=== PATIENT | female | born 1970 | race Caucasian/White ===

== ENCOUNTER 2019-08-29 09:34 | Emergency (ER) | payer BC ==
[2019-08-29 09:52] VITALS: RESP 18
--- NOTE | 2019-08-29 10:07 | ED ---
General Adult HPI - General Chief complaint: Psychiatric Symptoms Stated complaint: EPS eval Time Seen by Provider: 08/29/19 09:39 Source: patient Mode of arrival: EMS Limitations: no limitations - History of Present Illness Initial comments: Dictation was produced using [employer] dictation software. please excuse any grammatical, word or spelling errors. Chief Complaint: 49-year-old female brought in for psychiatric evaluation. History of Present Illness: 1-year-old female she was brought in by significant other for psychiatric evaluation. Patient is recently diagnosed bipolar disease. Patient has been behaving strangely according to significant other. She's been sending round attacks. She left the house and drove straight her psychiatrist's office it is recommended to her to come to the emergency department for EPS evaluation. Patient is to medical complaints at this time. She states that she does not feel like herself. The ROS documented in this emergency department record has been reviewed and confirmed by me. Those systems with pertinent positive or negative responses have been documented in the HPI. All other systems are other negative and/or noncontributory. PHYSICAL EXAM: General Impression: Alert and oriented x3, not in acute distress HEENT: Normocephalic atraumatic, extra-ocular movements intact, pupils equal and reactive to light bilaterally, mucous membranes moist. Cardiovascular: Heart regular rate and rhythm, S1&S2 audible, no murmurs, rubs or gallops Chest: Lungs clear to auscultation bilaterally, no rhonchi, no wheeze, no rales Abdomen: Bowel sounds present, abdomen soft, non-tender, non-distended, no organomegaly Musculoskeletal: Pulses present and equal in all extremities, no peripheral edema Motor: no focal deficits noted Neurological: CN II-XII grossly intact, no focal motor or sensory deficits noted Skin: Intact with no visualized rashes Psych: Normal affect and mood ED course: 49 y old female with recently diagnosed bipolar disease presents with request for psychiatric evaluation. On arrival are within except limits. Patient is no medical complaints. Physical examination is benign. Patient medically cleared for EPS evaluation. Patient was adamant about receiving his CT because she reports that her aunt had brain tumor. Discussed patient that there is no definitive reason to obtain CT. CT eventually was ordered showing findings of sinusitis. Patient is given Augmentin. University levels were requested by EPS nurse. Found to be 0.7 which is below therapeutic level. Discussed patient that she may need to have her medications adjusted. Patient given prescription for Augmentin. Gastric discharge planning was arranged by EPS. Patient clear for discharge. Recommend is sent to pharmacy for fever. She is understandable and agreeable with disposition. Return precautions discussed. All questions answered. - Related Data Home Medications Medication Instructions Recorded Confirmed Atorvastatin [Lipitor] 20 mg PO DAILY 08/29/19 08/29/19 Cholecalciferol [Vitamin D3 (25 3,000 unit PO DAILY 08/29/19 08/29/19 Mcg = 1000 Iu)] Cyanocobalamin (Vitamin B-12) 1,000 mcg PO DAILY 08/29/19 08/29/19 [Vitamin B-12] Diazepam [Valium] 5 mg PO BID 08/29/19 08/29/19 Docusate [Colace] 100 mg PO DAILY 08/29/19 08/29/19 FLUoxetine HCL [PROzac] 60 mg PO DAILY 08/29/19 08/29/19 L.acidoph,Paracasei, B.lactis 1 cap PO DAILY 08/29/19 08/29/19 [Probiotic] Levothyroxine Sodium [Synthroid] 125 mcg PO DAILY 08/29/19 08/29/19 University Carbonate 300 mg PO BID 08/29/19 08/29/19 Multivit-Min/FA/Lycopen/Lutein 1 tab PO DAILY 08/29/19 08/29/19 [Centrum Silver Tablet] Psyllium Husk (with Sugar) 1 dose PO DAILY 08/29/19 08/29/19 [Metamucil Powder] Temazepam [Restoril] 15 mg PO HS 08/29/19 08/29/19 lamoTRIgine [LaMICtal] 150 mg PO DAILY 08/29/19 08/29/19 metFORMIN HCL [metFORMIN HCL ER] 500 mg PO HS 08/29/19 08/29/19 traZODone HCL 150 mg PO HS 08/29/19 08/29/19 Previous Rx's Medication Instructions Recorded Amoxic-Pot Clav 875-125Mg 1 tab PO Q12HR 7 Days #14 tablet 08/29/19 [Augmentin 875-125] Allergies Allergy/AdvReac Type Severity Reaction Status Date / Time divalproex sodium AdvReac extreme Verified 08/29/19 11:36 [From Depakote] weight gain, altered mental state Review of Systems ROS Statement: Those systems with pertinent positive or pertinent negative responses have been documented in the HPI. ROS Other: All systems not noted in ROS Statement are negative. Past Medical History Additional Past Medical History / Comment(s): insulin resistant bipolar History of Any Multi-Drug Resistant Organisms: None Reported Past Surgical History: Hysterectomy Additional Past Surgical History / Comment(s): bladder prolapse Past Psychological History: Bipolar Smoking Status: Current some day smoker Past Alcohol Use History: None Reported Past Drug Use History: Marijuana General Exam Limitations: no limitations Course Vital Signs 08/29/19 09:43 Temperature 98.4 F Pulse Rate 71 Respiratory 18 Rate Blood Pressure 141/94 O2 Sat by Pulse 98 Oximetry Medical Decision Making - Lab Data Lab Results 08/29/19 Range/Units 13:50 University 0.7 mmol/L Disposition Clinical Impression: Sinusitis, Psychiatric illness Disposition: HOME SELF-CARE Condition: Good Instructions (If sedation given, give patient instructions): Sinusitis (ED) Prescriptions: Amoxic-Pot Clav 875-125Mg [Augmentin 875-125] 1 tab PO Q12HR 7 Days #14 tablet Is patient prescribed a controlled substance at d/c from ED?: No Referrals: Johana Freire DO [Primary Care Provider] - 1-2 days Time of Disposition: 14:34
--- NOTE | 2019-08-29 13:10 | CT ---
EXAMINATION TYPE: CT brain wo con DATE OF EXAM: 08/29/2019 COMPARISON: NONE HISTORY: Altered mental status; EPS Evaluation CT DLP: 1113.4 mGycm. Automated Exposure Control for Dose Reduction was Utilized. TECHNIQUE: CT scan of the head is performed without contrast. FINDINGS: There is no acute intracranial hemorrhage, mass effect, or midline shift identified. The ventricles and sulci are within normal limits in size. The globes are intact. Severe mucosal thicke yao of the sphenoid sinuses and polypoid mucosal thickening of the posterior nasopharynx. Mild mucos al thickening in the right maxillary sinus and ethmoid sinuses. Remaining visualized paranasal sinuse s and mastoid air cells are well aerated. IMPRESSION: No acute intracranial hemorrhage, mass effect, or midline shift is seen. Severe sinusiti s of the sphenoid sinus and mild of the ethmoid and right maxillary sinus.
[2019-08-29] MEDS ORDERED: AMOXIC-POT CLAV 875-125MG 1 EACH TAB PO STA (13:34)
[2019-08-29 14:52] VITALS: BP 144/94; PULSE 62; TEMP 98.3
== END 2019-08-29 14:50 | disposition home or self-care (01) ==
LOC: EC 09:34
DX: F31.9 Bipolar disorder, unspecified (principal); J01.30 Acute sphenoidal sinusitis, unspecified; J32.2 Chronic ethmoidal sinusitis; J32.0 Chronic maxillary sinusitis; F17.200 Nicotine dependence, unspecified, uncomplicated; Z88.8 Allergy status to other drugs, medicaments and biological substances; Z79.899 Other long term (current) drug therapy
CPT/HCPCS: 36415; 70450; 80178; 82075; 99285